=== PATIENT | male | born 1960 | race American Indian/Alaskan Native ===

== ENCOUNTER 2025-06-28 08:45 | Outpatient (AMB) | payer MEDICAID, SELFPAY ==
--- NOTE | 2025-06-28 08:48 | PD.ORTHCLVIS ---
Vital signs 06/28/25 08:55 Height 1.7 m Height Method Measured Weight 91.427 kg Weight Measurement Method Standing Scale BMI 31.6 BP 147/93 H Blood Pressure Source Automatic Cuff Blood Pressure Location Left Upper Arm Position Sitting Respiration 18 Pulse 65 Pulse Source Monitor Temp 97.8 F Temp Source Temporal Artery Scan Pulse Oximetry (%) 97 Oxygen Delivery Method Room Air Med/Allergies Allergies & Medications Allergies No Known Allergies Allergy (Verified 06/28/25 08:56) Medication Reconciliation No Known Home Medications 06/28/25 [History Confirmed 06/28/25] Exam Exam Breathing is nonlabored. Patient has a normal mood and affect. Bilateral extremities were evaluated and demonstrates sensation intact to light touch. Palpable pedal pulses are present. No significant edema is present. Bilateral hips were examined. The patient has no pain with log roll of the hips. Internal rotation to 30 degrees and external rotation to 30 degrees is painless. Negative FADIR. Left knee was examined today. The left knee is in reasonable alignment. Range of motion from 0-120 degrees. Knee is stable to varus and valgus as well as AP translation with <5mm. Patient has a negative McMurrays. There is no pain with patellofemoral compression and no crepitus noted. The knee is nontender to palpation. The right knee was also examined. The right knee is in varus alignment. Range of motion from 0-115 degrees. Knee is stable to varus and valgus as well as AP translation with <5mm. Patient has a negative McMurrays. There is no pain with patellofemoral compression and no crepitus noted. The knee is tender to palpation medially. Assessment and Plan Problem List (1) Pain in right knee: Status: Acute Plan: Patient is a 65-year-old male with right knee pain and right knee arthritis. We discussed different treatment options. We will get weightbearing x-rays as we do not have any currently. We would likely do injections at the next visit (2) Arthritis of knee, right: Status: Acute Advanced Care Planning Discussion Advance care planning discussed with:: patient Office Procedures GNS Level of Care Nursing/Assessment Patient Status: Initial/New Patient Nursing Assessment/Reassesment: Medication Reconciliation, Orthostatic Vitals, Update PMH in EMR and Vital Signs Coordination of Care: Complex Care and Chronic Disease 1-5, Education Complex Pt/Fam, Consent,records obtained, informed consent, Results/Orders obtained and Staff clarify orders New Patient Charge New Patient Point Assignment: 1104 New Patient Point Charge: SALESPERSON BURIAL [employer]OTS Level 3 ([id number]) MA Intake Visit Data Collection New Patient or Established: New Patient (never been to [facility]) Reason for Visit:: OSTEOARTHRITIS RIGHT KNEE Seen by Clinical Staff ONLY (RN/MA): No Church Musician Required: No PCP or OBGYN visit in last 3 months: Yes Hx Now: No Do You Feel Safe at Home: Yes Authorities Contacted: N/A Questionairres Past Medical History Past Medical History Have you ever been diagnosed with any of the following: Subjective Visit Visit for: new patient and knee Immunization / Flu Flu Vaccine in the Last 12 Months: Yes Flu Vaccine Exclusion Criteria: Already Received History of Present Illness Chief complaint: OSTEOARTHRITIS RIGHT KNEE Date of injury / onset of symptoms: 1 YEAR Patient is a 65-year-old male with right knee pain and right knee arthritis. The pain has been ongoing for a while. He has severely when he walks. The pain is described as diffuse. He has not had any injections. 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 Red flag PMH: none BMI Counceling provided: Yes Pain Pain level (0-10): 5 Pain location: inside (medial), outside (lateral), anterior and posterior Pain quality: dull and burning Pain timing: increases with activity and stairs Associated signs & symptoms: weakness Ambulatory data Ambulatory device: walker Walking distance (minutes): 3 Treatments Number of previous injections: 0 Improvement with previous injections: No Number of Physical Therapy sessions: 0 Improvement with PT: No Improvement with NSAIDS: no Review of Systems Review of Systems: All systems negative unless otherwise noted in HPI.
[2025-06-28 08:55] VITALS: BP 147/93; PULSE 65; RESP 18; TEMP 36.6; O2SAT 97; BMI 31.6
--- NOTE | 2025-06-28 09:29 | XR_ITS ---
Examination: Bilateral knees 2 views Right lateral knee left lateral knee 2 views Bilateral axial knees single view TECHNIQUE: Bilateral AP knees standing single view, bilateral PA knees standing single view flexion Standing right lateral knee left lateral knee 2 views Bilateral axial knees single view INDICATIONS: Bilateral knee pain 2 years FINDINGS: Advanced right knee tricompartment osteoarthritis including severe narrowing medial joint space Mild to moderate left knee tricompartment osteoarthritis No fractures IMPRESSION: Advanced right knee tricompartment osteoarthritis including severe narrowing medial joint spaces
== END 2025-06-28 09:31 | disposition home or self-care (01) ==
PROVIDERS: PCP Internal Medicine; Referring Provider Internal Medicine; Supervising Provider Orthopaedic Surgery Adult Reconstructive Orthopaedic Surgery; Visit Provider Orthopaedic Surgery Adult Reconstructive Orthopaedic Surgery
DX: M25.561 Pain in right knee (principal); M17.11 Unilateral primary osteoarthritis, right knee
CPT/HCPCS: 73564; 99203; G0463

== ENCOUNTER 2025-07-17 14:32 | Outpatient (AMB) | payer MEDICAID, SELFPAY ==
[2025-07-17 14:53] VITALS: BP 158/84; PULSE 75; RESP 18; TEMP 36.5; O2SAT 95; BMI 32.8
--- NOTE | 2025-07-17 14:53 | PD.ORTHCLVIS ---
Vital signs 07/17/25 14:53 Height 1.7 m Height Method Measured Weight 94.886 kg Weight Measurement Method Standing Scale BMI 32.8 BP 158/84 H Blood Pressure Source Automatic Cuff Blood Pressure Location Left Upper Arm Position Sitting Respiration 18 Pulse 75 Pulse Source Monitor Temp 97.7 F Temp Source Temporal Artery Scan Pulse Oximetry (%) 95 Oxygen Delivery Method Room Air Med/Allergies Allergies & Medications Allergies No Known Allergies Allergy (Verified 07/17/25 14:56) Medication Reconciliation meloxicam 7.5 mg tablet 7.5 mg PO QDAY #45 tabs 07/17/25 [Rx] Exam Exam Breathing is nonlabored. Patient has a normal mood and affect. Bilateral extremities were evaluated and demonstrates sensation intact to light touch. Palpable pedal pulses are present. No significant edema is present. Bilateral hips were examined. The patient has no pain with log roll of the hips. Internal rotation to 30 degrees and external rotation to 30 degrees is painless. Negative FADIR. Left knee was examined today. The left knee is in reasonable alignment. Range of motion from 0-120 degrees. Knee is stable to varus and valgus as well as AP translation with <5mm. Patient has a negative McMurrays. There is no pain with patellofemoral compression and no crepitus noted. The knee is nontender to palpation. The right knee was also examined. The right knee is in varus alignment. Range of motion from 0-115 degrees. Knee is stable to varus and valgus as well as AP translation with <5mm. Patient has a negative McMurrays. There is no pain with patellofemoral compression and no crepitus noted. The knee is tender to palpation medially. X-rays of the right knee demonstrate complete joint space narrowing obliteration of the medial joint space. Varus deformity is present Assessment and Plan Problem List (1) Pain in right knee: Status: Acute Plan: Patient is a 65-year-old male with right knee pain and right knee arthritis. We discussed different treatment options. Weightbearing x-rays demonstrate significant joint space narrowing medially and osteophytes. We thus discussed total knee replacement as a reasonable option. He is not interested in injections or more conservative treatment. He reports the pain is affecting his quality life and he would like to proceed with total knee replacement The nature and purpose of the total knee replacement, alternative method(s) of treatment, the material risks involved, and the possibility of complications were fully explained to the patient. The patient does NOT have any of the following contraindications to TKA: - Active infection of the knee joint, OR - Active systemic bacteremia, OR - Active skin infection or open wound at surgical site, OR - Neuropathic arthritis, OR - Severe, rapidly progressive neurological disease, OR - Severe medical condition that makes risks of surgery outweigh the potential benefit The patient was told the most common risks and complications associated with a total knee replacement include, but are not limited to: blood clots in the leg, fatal pulmonary embolism, dislocation of the prosthesis, intraoperative and postoperative fractures of the femur or tibia, infection, failure of the prosthesis or grafting materials, complications from anesthesia, reactions to blood transfusions, postoperative leg length inequality, instability of the knee replacement, nerve damage or injury, vascular injury, delayed wound healing, infection, other injury or even . In addition, there are risks associated with anesthesia given during this operation. Also, the patient was told that after undergoing a total knee replacement there may still be persistent pain or disability. The patient was informed that the success of this operation in part depends upon the mechanical devices which are going to be implanted and that these devices can fail or malfunction, and may need to be repaired or replaced and there are no guarantees as to the longevity of this device or its parts and that it or its parts could fail prematurely. The patient was also notified that during the course of surgery, there may be a need to use bone graft from donors, and that any bone graft used will be carefully screened for communicable diseases, including AIDS, hepatitis, Patrick-Creutzfeldt, or other diseases, but despite the screening procedures, there is a small chance that they could contract one of these diseases. Finally, the patient was asked to follow completely and fully with all advice and recommended treatments, and that recovery and ultimate outcome are affected by their compliance with recommended treatment. We discussed the risks, benefits and treatment alternatives, and the patient is interested in proceeding with surgery. We will try to set this up as expeditiously as possible. (2) Arthritis of knee, right: Status: Acute Advanced Care Planning Discussion Advance care planning discussed with:: patient Office Procedures GNS Level of Care Nursing/Assessment Patient Status: Established Patient Nursing Assessment/Reassesment: Medication Reconciliation, Orthostatic Vitals, Update PMH in EMR and Vital Signs Coordination of Care: Complex Care and Chronic Disease 1-5, Education Complex Pt/Fam, Consent,records obtained, informed consent, Results/Orders obtained and Staff clarify orders Established Patient Charge Established Patient Point Assignment: 105 Established Patient Point Charge: EP Level 3 (80-115) MA Intake Visit Data Collection New Patient or Established: Established Patient (seen at [facility] within 3 years) Reason for Visit:: FOLLOW UP IMAGING Seen by Clinical Staff ONLY (RN/MA): No Gas Operation Manager Required: No PCP or OBGYN visit in last 3 months: Yes Hx Now: No Do You Feel Safe at Home: Yes Authorities Contacted: N/A Questionairres Past Medical History Past Medical History Have you ever been diagnosed with any of the following: Subjective Visit Visit for: follow up visit and knee Immunization / Flu Flu Vaccine in the Last 12 Months: Yes Flu Vaccine Exclusion Criteria: Already Received History of Present Illness Chief complaint: FOLLOW UP ON IMAGING Date of injury / onset of symptoms: 1 YEAR Patient is a 65-year-old male with right knee pain and right knee arthritis. The pain has been ongoing for a while. He has severely when he walks. The pain is described as diffuse. He has not had any injections. 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 Red flag PMH: none BMI Counceling provided: Yes Pain Pain level (0-10): 5 Pain location: inside (medial), outside (lateral), anterior and posterior Pain quality: dull and burning Pain timing: increases with activity and stairs Associated signs & symptoms: weakness Ambulatory data Ambulatory device: walker Walking distance (minutes): 3 Treatments Number of previous injections: 0 Improvement with previous injections: No Number of Physical Therapy sessions: 0 Improvement with PT: No Improvement with NSAIDS: no Review of Systems Review of Systems: All systems negative unless otherwise noted in HPI.
== END 2025-07-17 15:16 | disposition home or self-care (01) ==
LOC: HODSRG 14:32
PROVIDERS: PCP Internal Medicine; Referring Provider Internal Medicine; Supervising Provider Orthopaedic Surgery Adult Reconstructive Orthopaedic Surgery; Visit Provider Orthopaedic Surgery Adult Reconstructive Orthopaedic Surgery
DX: M25.561 Pain in right knee (principal); M17.11 Unilateral primary osteoarthritis, right knee
CPT/HCPCS: 99213; J1010; J2795; G0463

== ENCOUNTER → 2025-08-24 | Outpatient (CLI) | payer MEDICAID, SELFPAY ==
--- NOTE | 2025-08-24 13:00 | XR_ITS ---
Examination: CT right lower extremity, without contrast. 2-D sagittal reconstructions. 2-D coronal reconstructions. 3-D reconstructions. Date and time of exam: August 24, 2025, 1336 hours INDICATIONS: Right knee pain beginning 3 years ago, diagnosis primary unilateral osteoarthritis right knee CTDI: vol (mGy): 10.1 DLP: (mGycm): 707 Technique: Multiple 1.25 mm axial sections of the right lower extremity without intravenous contrast have been obtained. 2-D sagittal and coronal reconstructions have been obtained. 3-D reconstructions have been obtained. Low dose protocols were performed. One or more of the following dose reduction techniques were used; automated exposure control, adjustment of the mA and/or KV according to patient size, use of iterative reconstruction technique. Findings: Mild osteopenia Mild to moderate right hip osteoarthritis, no right hip fracture or dislocation Advanced right knee tricompartment osteoarthritis, most severe medial joint space No fracture No patellar dislocation IMPRESSION: Advanced right hip osteoarthritis
== END | disposition home or self-care (01) ==
LOC: CCTX 13:11
PROVIDERS: Referring Provider Orthopaedic Surgery Adult Reconstructive Orthopaedic Surgery; Visit Provider Orthopaedic Surgery Adult Reconstructive Orthopaedic Surgery
DX: M17.11 Unilateral primary osteoarthritis, right knee (principal)
CPT/HCPCS: 73700

== ENCOUNTER 2025-08-28 08:28 | Outpatient (AMB) | payer MEDICAID, SELFPAY ==
[2025-08-28 08:49] VITALS: BP 145/89; PULSE 72; RESP 18; TEMP 36.7; O2SAT 97; BMI 32.8
--- NOTE | 2025-08-28 08:49 | ORTHONT_ITS ---
Vital signs 08/28/25 08:49 Height 1.7 m Height Method Stated Weight 95.028 kg Weight Measurement Method Standing Scale BMI 32.8 BP 145/89 H Blood Pressure Source Automatic Cuff Blood Pressure Location Left Upper Arm Position Sitting Respiration 18 Pulse 72 Pulse Source Monitor Temp 98.0 F Temp Source Temporal Artery Scan Pulse Oximetry (%) 97 Oxygen Delivery Method Room Air Med/Allergies Allergies & Medications Allergies No Known Allergies Allergy (Verified 08/28/25 08:50) Medication Reconciliation meloxicam 7.5 mg tablet 7.5 mg PO QDAY #45 tabs 07/17/25 [Rx Confirmed 08/28/25] Exam Exam Breathing is nonlabored. Patient has a normal mood and affect. Bilateral extremities were evaluated and demonstrates sensation intact to light touch. Palpable pedal pulses are present. No significant edema is present. Bilateral hips were examined. The patient has no pain with log roll of the hips. Internal rotation to 30 degrees and external rotation to 30 degrees is painless. Negative FADIR. Left knee was examined today. The left knee is in reasonable alignment. Range of motion from 0-120 degrees. Knee is stable to varus and valgus as well as AP translation with <5mm. Patient has a negative McMurrays. There is no pain with patellofemoral compression and no crepitus noted. The knee is nontender to palpation. The right knee was also examined. The right knee is in varus alignment. Range of motion from 0-115 degrees. Knee is stable to varus and valgus as well as AP translation with <5mm. Patient has a negative McMurrays. There is no pain with patellofemoral compression and no crepitus noted. The knee is tender to palpation medially. X-rays of the right knee demonstrate complete joint space narrowing obliteration of the medial joint space. Varus deformity is present Assessment and Plan Problem List (1) Pain in right knee: Status: Acute Plan: Patient is a 65-year-old male with right knee pain and right knee arthritis. We discussed different treatment options. Weightbearing x-rays demonstrate significant joint space narrowing medially and osteophytes. We thus discussed total knee replacement as a reasonable option. He is not interested in i njections or more conservative treatment. He reports the pain is affecting his quality life and he would like to proceed with total knee replacement The nature and purpose of the total knee replacement, alternative method(s) of treatment, the material risks involved, and the possibility of complications were fully explained to the patient. The patient does NOT have any of the following contraindications to TKA: - Active infection of the knee joint, OR - Active systemic bacteremia, OR - Active skin infection or open wound at surgical site, OR - Neuropathic arthritis, OR - Severe, rapidly progressive neurological disease, OR - Severe medical condition that makes risks of surgery outweigh the potential benefit The patient was told the most common risks and complications associated with a total knee replacement include, but are not limited to: blood clots in the leg, fatal pulmonary embolism, dislocation of the prosthesis, intraoperative and postoperative fractures of the femur or tibia, infection, failure of the prosthesis or grafting materials, complications from anesthesia, reactions to blood transfusions, postoperative leg length inequality, instability of the knee replacement, nerve damage or injury, vascular injury, delayed wound healing, infection, other injury or even . In addition, there are risks associated with anesthesia given during this operation. Also, the patient was told that after undergoing a total knee replacement there may still be persistent pain or disability. The patient was informed that the success of this operation in part depends upon the mechanical devices which are going to be implanted and that these devices can fail or malfunction, and may need to be repaired or replaced and there are no guarantees as to the longevity of this device or its parts and that it or its parts could fail prematurely. The patient was also notified that during the course of surgery, there may be a need to use bone graft from donors, and that any bone graft used will be carefully screened for communicable diseases, including AIDS, hepatitis, Patrick-Creutzfeldt, or other diseases, but despite the screening procedures, there is a small chance that they could contract one of these diseases. Finally, the patient was asked to follow completely and fully with all advice and recommended treatments, and that recovery and ultimate outcome are affected by their compliance with recommended treatment. We discussed the risks, benefits and treatment alternatives, and the patient is interested in proceeding with surgery. We will try to set this up as expeditiously as possible. (2) Arthritis of knee, right: Status: Acute Advanced Care Planning Discussion Advance care planning discussed with:: patient Office Procedures GNS Level of Care Nursing/Assessment Patient Status: Established Patient Nursing Assessment/Reassesment: Medication Reconciliation, Update PMH in EMR and Vital Signs Coordination of Care: Complex Care and Chronic Disease 1-5, Education Complex Pt/Fam, Consent,records obtained, informed consent, Results/Orders obtained and Staff clarify orders Established Patient Charge Established Patient Point Assignment: 95 Established Patient Point Charge: EP Level 3 (80-115) MA Intake Visit Data Collection New Patient or Established: Established Patient (seen at 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 The pain has been ongoing for a while. He has severely when he walks. The pain is described as diffuse. He has not had any injections. 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 Red flag PMH: none BMI Counceling provided: Yes Additional comments: WALKER WAS GIVEN TO PATIENT Pain Pain level (0-10): 5 Pain location: inside (medial), outside (lateral), anterior and posterior Pain quality: dull and burning Pain timing: increases with activity and stairs Associated signs & symptoms: weakness Ambulatory data Ambulatory device: walker Walking distance (minutes): 3 Treatments Number of previous injections: 0 Improvement with previous injections: No Number of Physical Therapy sessions: 0 Improvement with PT: No Improvement with NSAIDS: no Review of Systems Review of Systems: All systems negative unless otherwise noted in HPI.
== END 2025-08-28 09:11 | disposition home or self-care (01) ==
LOC: HODSRG 08:28
PROVIDERS: PCP Internal Medicine; Referring Provider Internal Medicine; Supervising Provider Orthopaedic Surgery Adult Reconstructive Orthopaedic Surgery; Visit Provider Orthopaedic Surgery Adult Reconstructive Orthopaedic Surgery
DX: Z47.1 Aftercare following joint replacement surgery (principal); Z96.651 Presence of right artificial knee joint; M25.561 Pain in right knee
CPT/HCPCS: 99213; G0463

== ENCOUNTER 2025-09-05 06:35 | Day surgery (SDC) | payer MEDICAID, SELFPAY ==
[2025-08-28 09:44] VITALS: BMI 32.7
[2025-08-28 10:29] LABS: Basophils # (Auto) 0.1 Thou/mm3 (0.0-0.2); Basophils % (Auto) 1 % (0-2.5); Eosinophils # (Auto) 0.2 Thou/mm3 (0.0-0.5); Eosinophils % (Auto) 3 % (0-10); Hematocrit 48.8 % (41.0-53.0); Hemoglobin 15.6 g/dL (13.5-16.0); Immature Granulocytes Auto 0.02 Thou/mm3 (0.00-0.00); Lymphocytes # (Auto) 1.9 Thou/mm3 (1.0-4.8); Lymphocytes % (Auto) 25 % (10-50); Mean Corpuscular HGB Conc 32.0 g/dl (31.0-37.0); Mean Corpuscular Hemoglobin 26.0 pg (25.0-35.0); Mean Corpuscular Volume 81 fL (80-100); Monocytes # (Auto) 0.7 Thou/mm3 (0.0-0.8); Monocytes % (Auto) 9 % (0-12); Neutrophils # (Auto) 4.5 Thou/mm3 (1.8-7.7); Neutrophils % (Auto) 62 % (37-80); Nucleated Red Blood Cell # 0.00 Thou/mm3 (0.00-0.00); Nucleated Red Blood Cell % 0 /100 WBC (0); Platelet Count 317 Thou/mm3 (140-440); RDW Standard Deviation 54.6 fL (35.1-43.9); Red Blood Count 6.00 Miln/mm3 (4.50-5.90); White Blood Count 7.3 Thou/mm3 (3.8-10.6)
[2025-08-28 10:42] LABS: INR 1.0 (0.9-1.3); Partial Thromboplastin Time 28.2 Seconds (22.0-36.0); Prothrombin Time 10.4 Seconds (9.0-12.2)
[2025-08-28 10:49] LABS: Alanine Aminotransferase 60 U/L (10-49); Albumin, Serum 4.9 gm/dL (3.4-4.8); Albumin/Globulin Ratio 2.0 (1.2-2.2); Alkaline Phosphatase 111 U/L (46-116); Anion Gap 10 (7-16); Aspartate Amino Transferase 55 U/L (0-34); BUN/Creatinine Ratio 11 Ratio (12-20); Bilirubin,Total 0.7 mg/dL (0.3-1.2); Blood Urea Nitrogen 10 mg/dL (9-23); Calcium 9.5 mg/dL (8.3-10.6); Calcium (Corrected) 9.5 mg/dL (8.5-10.1); Carbon Dioxide 25.8 mMol/L (20.0-31.0); Chloride 103 mMol/L (98-107); Creatinine (Component) 0.9 mg/dL (0.6-1.3); Estimated Creatinine Clearance 89.8 mL/min (>60); Globulin 2.5 gm/dL (2.3-3.5); Glucose 106 mg/dL (74-106); Osmolality,Calculated 276 (275-295); Potassium 4.0 mMol/L (3.4-5.1); Sodium 139 mMol/L (136-145); Total Protein 7.4 gm/dL (5.7-8.2); eGFR > 60 See Note
[2025-09-05] VITALS (14 sets, daily range): BP systolic 100–177; BP diastolic 57–102; PULSE 66–98; RESP 12–26; TEMP 36.2–36.9; O2SAT 93–99; BMI 32.0
--- NOTE | 2025-09-05 07:25 | CHAP ---
Visited briefly with patient and prayed for upcoming procedure.
[2025-09-05] MEDS: MELOXICAM 7.5 MG TABLET PO (07:41)
[2025-09-05] MEDS: PREGABALIN 75 MG CAPSULE PO (07:41)
[2025-09-05] MEDS: ACETAMINOPHEN 325 MG TABLET 650 MG PO (07:42)
--- NOTE | 2025-09-05 10:57 | ESOP_ITS ---
Date of Procedure 09/05/25 Pre Op Diagnosis Right knee osteoarthritis Post Op Diagnosis Right knee osteoarthritis Procedure Right total knee replacement Hardy Findings Full-thickness cartilage loss and osteophytes Procedure Description Indication: The patient has a long history of right knee pain. X-rays show degenerative arthritis involving the knee. Over the past several years the patient has had increasing pain, progressive limitation in function. He has failed conservative measures including activity modification, physical therapy, injections, anti- inflammatories, and assistive devices. After a lengthy discussion of the risks and benefits, the patient presents now for total knee replacement. The nature and purpose of the total knee replacement, alternative method(s) of treatment, the material risks involved, and the possibility of complications were fully explained to the patient. The patient was told the most common risks and complications associated with a total knee replacement include, but are not limited to blood clots in the leg, fatal pulmonary embolism, dislocation of the prosthesis, intraoperative and postoperative fractures of the femur or tibia, infection, failure of the prosthesis or grafting materials, complications from anesthesia, reactions to blood transfusions, postoperative leg length inequality, instability of the knee replacement, nerve damage or injury, vascular injury, delayed wound healing, infections, other injury or even . In addition, there are risks associated with anesthesia given during this operation, temporary or permanent numbness on the skin lateral to the incision can be a complication unique to total knee surgery, and kneeling can be painful after knee replacement surgery. Also, the patient was told that after undergoing a total knee replacement there may still be pain or disability. We discussed with the patient that we will be using a robot-assisted technology. We discussed that there is a possibility of converting to manual instrumentation. The patient was informed that the success of this operation in part depends upon the mechanical devices which are going to be implanted and that these devices can fail or malfunction, and may need to be repaired or replaced and there are no guarantees as to the longevity of this device or its part and that it or its parts could fail prematurely. Finally, the patient was asked to follow completely and fully with all advice and recommended treatments, and that recovery and ultimate outcome are affected by their compliance with recommended treatment. Surgical technique: Patient was marked and consented in the pre-operative area. The patient was brought to the operating room and placed on the operating table in a supine position. Prior to positioning, a timeout procedure was performed between the surgeon, the anesthesiologist, and the nursing staff where the patient and the operative side were identified and confirmed. After adequate general anesthetic was obtained, the right lower extremity was prepped and draped in the usual sterile fashion. A weight based dose of Cefazolin were administered within 1 hour prior to incision. The robot was preregistered and calibrated before the incision. The extremity was exsanguinated with an esmarch badge and tourniquet inflated to 250mmHg. A midline incision was made. A median parapatellar arthrotomy was made. The patella was subluxed laterally. A medial release was performed to expose the medial tibia. His femoral and tibial pins were placed through an intra incisional manner for both cases. Every effort was made to ensure that the distalmost aspect of the pin was hung in the second cortex. The arrays were then tightened several times to ensure that it was fixed for the remainder of the case. Both femoral and tibial checkpoints were then placed. We then went through the registration process of the bone. We then assessed the knee deformity and attempted to correct it. We also used the robot to aid in judging laxity in both extension and flexion. Final based on laxity and alignment we changed the preoperative assessment to obtain proper proper implant positioning and to correct deformity. Attention was then placed to the tibia. We made a tibial cut using the robot ensuring that both the MCL and the patella tendon were protected with retractors. We then went to the femur and made the posterior cut followed by the anterior cut and the anterior chamfer. The bone was then removed and we made a distal femur cut and a posterior chamfer cut. We verified all cuts. A trial reduction was performed with a size 4 femoral component and a size 4 keeled tibial component. T The patella tracked centrally, and no lateral retinacular release was necessary. The trial implants were removed. The arrays, pins, and checkpoints were all removed. We performed a verification that all p ins were removed. The cut bone surfaces were lavaged. A size 4 right femoral component, a size 4 keeled tibial component were impacted into position. The knee was felt to be well balanced in the sagittal and coronal plane. The final 4x11mm cruciate- substituting articular insert was impacted into the tibial tray. The knee was brought out to full extension, flexed up to 120 degrees. It was stable to varus and valgus stress and appropriately balanced in flexion and extension. The wounds were copiously irrigated following deflation of tourniquet. The medial retinaculum was reapproximated with #1 vicryl and quill. The subcutaneous tissues were closed with 0 and 2-0 interrupted Vicryl. The skin was closed with 3-0 Monofilament V loc suture. A sterile dressing was applied. The patient was transferred to a bed and brought to recovery in stable condition. The patient tolerated the procedure well. There were no intraoperative complications. Sponge and needle counts were correct times 2. As the attending surgeon, I rukhsana I was present and performed the entire operation. Grafts/Implants Size 4 CR Femur Size 4 Tibia 11mm poly CS Anesthesia spinal Implants Implants comments: sharee Pathology / specimen None Pathology comment: none Estimated Blood Loss 150 Condition Stable Disposition same day Surgeon Salvador Wagner MD Surgical Staff Operation Date: 09/05/25 10:15 Case Staff VICE CHAIR: Curt Cline RN First Assistant: Juany Grijalva
--- NOTE | 2025-09-05 10:59 | XR_ITS ---
EXAMINATION: Right knee 2 views TECHNIQUE: AP lateral right knee 2 views Date and time: September 05, 2025, 12:44 p.m. INDICATIONS: Postop knee replacement today. FINDINGS: Total right knee replacement Satisfactory alignment No fracture IMPRESSION: Total right knee replacement with satisfactory alignment
--- NOTE | 2025-09-05 11:33 | SUR.PHASEI ---
1133: Pt. arrived with oral airway in place, vitals stable, breathing unlabored, no signs of distress, dressing to right knee CDI, no active bleed noted, bilateral dorsalis pedis pulses strong and regular, cap refill to bilateral feet less than 3 seconds, report received from Warren ROMERO and Miguel VARNER.
--- NOTE | 2025-09-05 11:40 | SUR.PHASEI ---
pt not arousable, oral airway present, dressing to right lower extremity clean, dry, and intact, bilateral pedal pulses present/equal/strong, VS stable, report from Geeta ROMERO
[2025-09-05] MEDS: ACETAMINOPHEN IVPB 1,000 MG/100 ML VIAL 250 MG IV (12:09)
--- NOTE | 2025-09-05 12:14 | SUR.PHASEI ---
1214: Report received from Johanna Urias RN. Pt. AAOx4, vitals stable, breathing unlabored, dressing to right knee CDI, no active bleed noted, pt. complaining of pain, will give pain med.
--- NOTE | 2025-09-05 12:14 | SUR.PHASEI ---
report to Geeta ROMERO
[2025-09-05] MEDS: oxyCODONE HCL 5 MG IR TAB PO (12:25)
[2025-09-05] MEDS: fentaNYL CIT INJ 50 mCg/ML AMP 2ML IVP ×2 (13:14→14:06)
--- NOTE | 2025-09-05 15:40 | SUR.PHASEII ---
1540: Pt. AAOx4, vitals stable, breathing unlabored, no complaint of pain or nausea, dressing to right knee CDI, no active bleed noted, bilateral dorsalis pedis pulses strong and regular, cap refill to bilateral feet less than 3 seconds, pt. tolerated physical therapy well, pt. tolerated sips of juice well, gave discharge instructions to the pt. and his ride using in-house inspector metal can Naomy, both verbalized understanding and had no further questions. Pt. ambulated to wheelchair with steady gait and minimal assist, no complications. Pt. left with all personal belongings.
== END 2025-09-05 15:40 | disposition home or self-care (01) ==
PROVIDERS: Anesthesiology; Referring Provider Orthopaedic Surgery Adult Reconstructive Orthopaedic Surgery; Visit Provider Orthopaedic Surgery Adult Reconstructive Orthopaedic Surgery
PROC: (CPT 20985; principal; 2025-09-05 10:00)
DX: M17.11 Unilateral primary osteoarthritis, right knee (principal); M25.761 Osteophyte, right knee
CPT/HCPCS: 20985; 27447; 73560; 97162; A4217; A4649; C1713; C1776; J0131; J1171; J2250; J2371; J2405; J2704; J3010; J3490; A4648; A9270; J7999

== ENCOUNTER 2025-09-20 10:38 | Outpatient (AMB) | payer MEDICAID, SELFPAY ==
--- NOTE | 2025-09-20 11:16 | PD.ORTHCLVIS ---
Vital signs 09/20/25 11:17 Height 1.7 m Height Method Measured Weight 193 kg Weight Measurement Method Standing Scale BMI 66.7 BP 135/81 H Blood Pressure Source Automatic Cuff Blood Pressure Location Left Upper Arm Position Sitting Respiration 18 Pulse 80 Pulse Source Monitor Temp 98.3 F Temp Source Temporal Artery Scan Pulse Oximetry (%) 95 Oxygen Delivery Method Room Air Med/Allergies Allergies & Medications Allergies No Known Allergies Allergy (Verified 09/20/25 11:23) Medication Reconciliation acetaminophen 500 mg tablet (Acetaminophen Extra Strength) 1,000 mg (2 x 500 mg) PO Q6H PRN pain #90 tabs 09/05/25 [Rx Confirmed 09/20/25] aspirin 81 mg tablet,delayed release 81 mg PO BID #60 tabs 09/05/25 [Rx Confirmed 09/20/25] doxycycline hyclate 100 mg tablet 100 mg PO BID #14 tabs 09/05/25 [Rx Confirmed 09/20/25] gabapentin 300 mg capsule 300 mg PO .qhs #30 caps 09/05/25 [Rx Confirmed 09/20/25] oxycodone 5 mg tablet 5 mg PO Q6H PRN pain #28 tabs 09/05/25 [Rx Confirmed 09/20/25] sennosides 8.6 mg-docusate sodium 50 mg tablet (Senna-S) 1 tab-cap PO QDAY #30 tabs 09/05/25 [Rx Confirmed 09/20/25] cyclobenzaprine 5 mg tablet 5 mg PO TID PRN muscle spasm #60 tabs 09/12/25 [Rx Confirmed 09/20/25] oxycodone 5 mg tablet 5 mg PO Q6H PRN pain #28 tabs 09/12/25 [Rx Confirmed 09/20/25] Exam Exam Patient is in no acute distress and is cooperative with the examination today. Breathing is nonlabored. Patient has a normal mood and affect. Bilateral extremities were evaluated and demonstrates sensation intact to light touch. Palpable pedal pulses are present. No significant edema is present. Bilateral hips were examined. The patient has no pain with log roll of the hips. Internal rotation to 30 degrees and external rotation to 30 degrees is painless. Negative FADIR. Right knee was examined today. The right knee is in neutral alignment. The incision is clean dry and intact. Assessment and Plan Problem List (1) Pain in right knee: Status: Acute Plan: Patient is status post right total knee replacement and is doing well. He is using a walker and his pain is now controlled. WE Will start him with therapy (2) Arthritis of knee, right: Status: Acute Advanced Care Planning Discussion Advance care planning discussed with:: patient Office Procedures GNS Level of Care Nursing/Assessment Patient Status: Established Patient Nursing Assessment/Reassesment: Medication Reconciliation, Update PMH in EMR and Vital Signs Coordination of Care: Complex Care and Chronic Disease 1-5, Education Complex Pt/Fam, Consent,records obtained, informed consent, Results/Orders obtained and Staff clarify orders Established Patient Charge Established Patient Point Assignment: 95 Established Patient Point Charge: EP Level 3 (80-115) MA Intake Visit Data Collection New Patient or Established: Established Patient (seen at 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: No PCP or OBGYN visit in last 3 months: Yes Hx Now: No Do You Feel Safe at Home: Yes Authorities Contacted: N/A Questionairres Past Medical History Past Medical History Have you ever been diagnosed with any of the following: Neurological Problems Seizures: No Cardiology Problems Congestive Heart Failure: No Respiratory Problems Chronic Obstructive Pulmonary Disease (COPD): No Genital/Urinary Problems Renal Disease: No Musculoskeletal Problems Arthritis: Yes Endocrine Problems Diabetes Mellitus Type 1: No Diabetes Mellitus Type 2: No Blood Problems Anemia: No Other Problems Hospitalization: Yes (surgery) Shingles: No Blood Transfusions: No Blood Transfusion Reaction: No Anesthesia Reactions: No MRSA: No Human Immunodeficiency Virus (HIV): No Chicken Pox: No Measles: No Mumps: No Rubella ([place] Measles): No Pertussis: No Clostridium Difficile: No Cancer: No Subjective Visit Visit for: follow up visit and knee (RIGHT) Immunization / Flu Flu Vaccine in the Last 12 Months: Yes Flu Vaccine Exclusion Criteria: Already Received History of Present Illness Chief complaint: 2 WEEK POST OP RIGHT TKA Date of injury / onset of symptoms: 1 YEAR Patient is doing well status post total knee replacement 2 weeks ago. He is doing well. 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 Red flag PMH: none BMI Counceling provided: Yes Additional comments: WALKER WAS GIVEN TO PATIENT Pain Pain level (0-10): 5 Pain location: inside (medial), outside (lateral), anterior and posterior Pain quality: dull and burning Pain timing: increases with activity and stairs Associated signs & symptoms: weakness Ambulatory data Ambulatory device: walker Walking distance (minutes): 3 Treatments Number of previous injections: 0 Improvement with previous injections: No Number of Physical Therapy sessions: 0 Improvement with PT: No Improvement with NSAIDS: no Review of Systems Review of Systems: All systems negative unless otherwise noted in HPI.
[2025-09-20 11:17] VITALS: BP 135/81; PULSE 80; RESP 18; TEMP 36.8; O2SAT 95; BMI 66.7
== END 2025-09-20 11:28 | disposition home or self-care (01) ==
LOC: HODSRG 10:38
PROVIDERS: PCP Internal Medicine; Referring Provider Internal Medicine; Supervising Provider Orthopaedic Surgery Adult Reconstructive Orthopaedic Surgery; Visit Provider Orthopaedic Surgery Adult Reconstructive Orthopaedic Surgery
DX: Z47.1 Aftercare following joint replacement surgery (principal); Z96.651 Presence of right artificial knee joint; M25.561 Pain in right knee
CPT/HCPCS: 99213; G0463

== ENCOUNTER 2025-10-18 09:13 | Outpatient (AMB) | payer MEDICAID, SELFPAY ==
[2025-10-18 09:58] VITALS: BP 150/103; PULSE 80; RESP 19; TEMP 36.8; O2SAT 95; BMI 31.2
--- NOTE | 2025-10-18 09:58 | PD.ORTHCLVIS ---
Vital signs 10/18/25 09:58 Height 1.7 m Height Method Stated Weight 90.265 kg Weight Measurement Method Standing Scale BMI 31.2 BP 150/103 H Blood Pressure Source Automatic Cuff Blood Pressure Location Left Upper Arm Position Sitting Respiration 19 Pulse 80 Pulse Source Monitor Temp 98.3 F Temp Source Temporal Artery Scan Pulse Oximetry (%) 95 Oxygen Delivery Method Room Air Med/Allergies Allergies & Medications Allergies No Known Allergies Allergy (Verified 10/18/25 09:59) Medication Reconciliation acetaminophen 500 mg tablet (Acetaminophen Extra Strength) 1,000 mg (2 x 500 mg) PO Q6H PRN pain #90 tabs 09/05/25 [Rx Confirmed 10/18/25] aspirin 81 mg tablet,delayed release 81 mg PO BID #60 tabs 09/05/25 [Rx Confirmed 10/18/25] doxycycline hyclate 100 mg tablet 100 mg PO BID #14 tabs 09/05/25 [Rx Confirmed 10/18/25] gabapentin 300 mg capsule 300 mg PO .qhs #30 caps 09/05/25 [Rx Confirmed 10/18/25] oxycodone 5 mg tablet 5 mg PO Q6H PRN pain #28 tabs 09/05/25 [Rx Confirmed 10/18/25] sennosides 8.6 mg-docusate sodium 50 mg tablet (Senna-S) 1 tab-cap PO QDAY #30 tabs 09/05/25 [Rx Confirmed 10/18/25] cyclobenzaprine 5 mg tablet 5 mg PO TID PRN muscle spasm #60 tabs 09/12/25 [Rx Confirmed 10/18/25] oxycodone 5 mg tablet 5 mg PO Q6H PRN pain #28 tabs 09/12/25 [Rx Confirmed 10/18/25] Exam Exam Patient is in no acute distress and is cooperative with the examination today. Breathing is nonlabored. Patient has a normal mood and affect. Bilateral extremities were evaluated and demonstrates sensation intact to light touch. Palpable pedal pulses are present. No significant edema is present. Bilateral hips were examined. The patient has no pain with log roll of the hips. Internal rotation to 30 degrees and external rotation to 30 degrees is painless. Negative FADIR. Right knee was examined today. The right knee is in neutral alignment. The incision is clean dry and intact. Range of motion 0 to 110 degrees Assessment and Plan Problem List (1) Pain in right knee: Status: Acute Plan: Patient is status post right total knee replacement and is doing well. He is using a walker and his pain is now controlled. WE Will start him with therapy Will see him back in 6 to 8 weeks after x-rays (2) Arthritis of knee, right: Status: Acute Advanced Care Planning Discussion Advance care planning discussed with:: patient Office Procedures GNS Level of Care Nursing/Assessment Patient Status: Established Patient Nursing Assessment/Reassesment: Medication Reconciliation, Update PMH in EMR and Vital Signs Coordination of Care: Complex Care and Chronic Disease 1-5, Education Complex Pt/Fam, Consent,records obtained, informed consent, Results/Orders obtained and Staff clarify orders Established Patient Charge Established Patient Point Assignment: 95 Established Patient Point Charge: Level 3 (80-115) MA Intake Visit Data Collection New Patient or Established: Established Patient (seen at [facility] within 3 years) Reason for Visit:: 6 WK TKA Seen by Clinical Staff ONLY (RN/MA): No Pre Billing Specialist Required: No PCP or OBGYN visit in last 3 months: Yes Hx Now: No Do You Feel Safe at Home: Yes Authorities Contacted: N/A Questionairres Past Medical History Past Medical History Have you ever been diagnosed with any of the following: Neurological Problems Seizures: No Cardiology Problems Congestive Heart Failure: No Respiratory Problems Chronic Obstructive Pulmonary Disease (COPD): No Genital/Urinary Problems Renal Disease: No Musculoskeletal Problems Arthritis: Yes Endocrine Problems Diabetes Mellitus Type 1: No Diabetes Mellitus Type 2: No Blood Problems Anemia: No Other Problems Hospitalization: Yes (surgery) Shingles: No Blood Transfusions: No Blood Transfusion Reaction: No Anesthesia Reactions: No MRSA: No Human Immunodeficiency Virus (HIV): No Chicken Pox: No Measles: No Mumps: No Rubella ([place] Measles): No Pertussis: No Clostridium Difficile: No Cancer: No Subjective Visit Visit for: follow up visit and knee (RIGHT) Immunization / Flu Flu Vaccine in the Last 12 Months: Yes Flu Vaccine Exclusion Criteria: Already Received History of Present Illness Chief complaint: 6 WK TKA Date of injury / onset of symptoms: 1 YEAR Patient is doing well status post total knee replacement 6 weeks ago. He is doing well. 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 Red flag PMH: none BMI Counceling provided: Yes Additional comments: WALKER WAS GIVEN TO PATIENT Pain Pain level (0-10): 0 Pain location: inside (medial), outside (lateral), anterior and posterior Pain quality: dull and burning Pain timing: increases with activity and stairs Associated signs & symptoms: weakness Ambulatory data Ambulatory device: cane Walking distance (minutes): 3 Treatments Number of previous injections: 0 Improvement with previous injections: No Number of Physical Therapy sessions: 0 Improvement with PT: No Improvement with NSAIDS: no Review of Systems Review of Systems: All systems negative unless otherwise noted in HPI.
--- NOTE | 2025-10-18 10:08 | XR_ITS ---
EXAMINATION: Bilateral AP knees PA lateral axial right knee 3 views TECHNIQUE: Bilateral AP knees standing single view Right knee PA flexion standing, standing lateral, axial right knee 3 views total 4 views Date and time: October 18, 2025, 1028 hours INDICATION: Right knee replacement 6 weeks ago. FINDINGS: Moderate osteopenia Total right knee replacement. Satisfactory alignment. No loosening of the prosthetic components. No patellar dislocation. No significant narrowing medial lateral joint spaces left knee IMPRESSION: Total right knee replacement with satisfactory alignment
== END 2025-10-18 10:10 | disposition home or self-care (01) ==
LOC: HODSRG 09:13
PROVIDERS: PCP Internal Medicine; Referring Provider Internal Medicine; Supervising Provider Orthopaedic Surgery Adult Reconstructive Orthopaedic Surgery; Visit Provider Orthopaedic Surgery Adult Reconstructive Orthopaedic Surgery
DX: Z47.1 Aftercare following joint replacement surgery (principal); Z96.651 Presence of right artificial knee joint; M25.561 Pain in right knee
CPT/HCPCS: 73564; 99213; G0463